=== PATIENT | male | born 1995 | race African-American/Black ===

== ENCOUNTER 2016-12-23 08:06 | Emergency (ER) | payer MEDICAID ==
[~2016-12-23] VITALS: Ht 182.9 cm; Wt 80.0 kg
[2016-12-23] MEDS ORDERED: IBUPROFEN 600MG TABLET PO ONE (10:30)
[2016-12-23 11:33] VITALS: BP 156/83
== END 2016-12-23 12:10 | disposition home or self-care (01) ==
LOC: ER 09:42
DX: M79.605 Pain in left leg (principal); F17.210 Nicotine dependence, cigarettes, uncomplicated
CPT/HCPCS: 73562; 99284; Z7610